=== PATIENT | female | born 1975 | race Caucasian/White ===

== ENCOUNTER 2021-11-29 05:21 | Emergency (ER) | payer OTHER ==
[~2021-11-29] VITALS: Ht 175.3 cm; Wt 76.4 kg
[2021-11-29] MEDS ORDERED: DIFICID200 MG PO (06:22)
== END 2021-11-29 06:39 | disposition home or self-care (01) ==
LOC: ED 05:21
DX: A04.71 Enterocolitis due to Clostridium difficile, recurrent (principal); Z91.048 Other nonmedicinal substance allergy status
CPT/HCPCS: 36415; 80053; 81001; 83690; 83735; 85025; 99284